=== PATIENT | female | born 1950 | race Caucasian/White ===

== ENCOUNTER 2021-06-28 20:34 | Emergency (ER) | payer MEDICARE ==
[2021-06-28] MEDS ORDERED: Dexamethasone 4 MG/ML SDV IVPUSH ONE (21:57)
--- NOTE | 2021-06-28 22:04 | EDM.PDOC ---
ED HPI GENERAL MEDICAL PROBLEM - General Chief Complaint: Bite:Animal, Insect Stated Complaint: STEP ON WASP - L FOOT Time Seen by Provider: 06/28/21 21:58 Source of Information: Reports: Patient, Family () History Limitations: Reports: No Limitations - History of Present Illness INITIAL COMMENTS - FREE TEXT/NARRATIVE: Tiffany is a 70 year old female present to ER for evaluation of wasp sting involving left foot at the base of second toe on plantar surface. Ground wasp got stung between sandal and foot resulting in sting. Tiffany took Benadryl and pain pill offered by before presenting to ER. Tiffany placed foot in cruz and applied ice to the area for pain and swelling. - Related Data Allergies Allergy/AdvReac Type Severity Reaction Status Date / Time weed pollen Allergy Respiratory Verified 06/28/21 21:43 Distress Home Meds: Home Meds Acetaminophen/HYDROcodone [[place] 325-5 MG] 1 - 2 tab PO Q6H PRN 2 Days #10 tab 06/28/21 [Rx] Metoprolol Succinate [Toprol XL] 25 mg PO DAILY 06/28/21 [History] Triamterene/Hydrochlorothiazid [Triamterene-HCTZ 37.5-25 MG] 1 each PO DAILY 06/28/21 [History] Vit D3/Vit K2/Calc Frutoborate [Move Free Xfybb-Pgkreb-R1-D3] 50 mcg PO DAILY 06/28/21 [History] atorvaSTATin [Lipitor] 40 mg PO DAILY 06/28/21 [History] polyethylene glycoL 3350 [Miralax] 17 gm PO DAILY 06/28/21 [History] ED ROS GENERAL - Review of Systems Review Of Systems: Comprehensive ROS is negative, except as noted in HPI. ED EXAM, ANIMAL BITE - Physical Exam Exam: See Below Exam Limited By: No Limitations General Appearance: Alert, WD/WN, Mild Distress (due to foot pain) Eye Exam: Bilateral Eye: Normal Inspection Ears: Hearing Grossly Normal Nose: Normal Inspection Throat/Mouth: Normal Inspection, Normal Voice, No Airway Compromise Head: Atraumatic Neck: Normal Inspection Respiratory/Chest: No Respiratory Distress, Lungs Clear, Normal Breath Sounds Cardiovascular: Normal Peripheral Pulses, Regular Rate, Rhythm GI/Abdominal: Normal Bowel Sounds Extremities: Other (Swelling with pain involving ball of left foot with erythema secondary to reported wasp sting. ) Neurological: Alert, Oriented, CN II-XII Intact, Normal Cognition, Normal Gait Psychiatric: Normal Affect, Normal Mood Skin Exam: Normal Color, Warm/Dry Course - Orders/Labs/Meds Orders: Active Orders 24 hr Category Date Time Status dexAMETHasone [Decadron] Med 06/28/21 21:57 Once 10 mg IVPUSH ONETIME ONE Departure - Departure Time of Disposition: 22:13 Disposition: Home, Self-Care 01 Clinical Impression: Sting, wasp - Discharge Information Prescriptions: Acetaminophen/HYDROcodone [[place] 325-5 MG] 1 - 2 tab PO Q6H PRN 2 Days #10 tab PRN Reason: Pain (Severe 7-10) Instructions: Bee, Wasp, or Hornet Sting, Adult, Pain Medicine Instructions, [id number] Referrals: PCP,None [Primary Care Provider] - Additional Instructions: 1. Ice as long as needed to help with swelling and pain. Elevated as much as possible. 2. Ibuprofen 600-800mg every 6hrs with food for pain and swelling. 3. May consider Benadryl but may have minimal improvement. 4. Decadron Steroid injection given during E visit for acute swelling and pain. 5. [place] (5/325) 1-2 tablets as needed for more severe pain #10 INSTYMED. 6. Contact clinic on Thursday for recheck if continued concerns. 7. Swelling may get worse before it gets better. - My Orders Last 24 Hours: My Active Orders 06/28/21 21:57 dexAMETHasone [Decadron] 10 mg IVPUSH ONETIME ONE - Assessment/Plan Last 24 Hours: My Active Orders 06/28/21 21:57 dexAMETHasone [Decadron] 10 mg IVPUSH ONETIME ONE
[2021-06-28] MEDS ORDERED: Dexamethasone 4 MG/ML SDV IM ONE (22:05)
[2021-06-28] MEDS: Acetaminophen/HYDROcodone 325-5 MG Tab PO ONE ×2 (22:07→22:15)
== END 2021-06-28 22:21 | disposition home or self-care (01) ==
LOC: JP.ED 20:34
DX: T63.461A Toxic effect of venom of wasps, accidental (unintentional), initial encounter (principal); Z91.09 Other allergy status, other than to drugs and biological substances; Z79.899 Other long term (current) drug therapy
CPT/HCPCS: 96372; 99282; A9270; J1100